=== PATIENT | female | born 1965 | race African-American/Black ===

== ENCOUNTER 2017-06-19 09:16 | Emergency (ER) | payer BC ==
[~2017-06-19] VITALS: Ht 165.1 cm; Wt 85.7 kg
[~2017-06-19 09:16] MED LIST: BP MEDS; CARDIZEM CD120 MG; DIOVAN; FISH OIL 1,001000 M2 PO; FLEXERIL PO; HYDROCODONE-AP1 EAC6 PO; LIDOCAINE VISC100 ML MM; NORCO 5-325 TA1 EACH PO; OMEPRAZOLE40 MG PO; PERCOCET 5-3251 EACH PO; TRAMADOL 50 MG50 MG PO; VALIUM2 MG PO; VALIUM5 MG PO; VITAMIN D1000 UNI1; ZPAK PO
[2017-06-19] MEDS ORDERED: VITAMIN E400 UNIT PO (09:30)
[2017-06-19] MEDS ORDERED: GARLIC1 EACH PO (09:30)
[2017-06-19] MEDS ORDERED: NORCO 5-325 TA1 EACH PO (09:58)
[2017-06-19 10:54] VITALS: BP 130/81
== END 2017-06-19 10:50 | disposition home or self-care (01) ==
LOC: ER 09:16
DX: M79.604 Pain in right leg (principal); M54.32 Sciatica, left side; I10 Essential (primary) hypertension; K21.9 Gastro-esophageal reflux disease without esophagitis; F17.210 Nicotine dependence, cigarettes, uncomplicated; Z88.0 Allergy status to penicillin; Z88.8 Allergy status to other drugs, medicaments and biological substances

== ENCOUNTER 2020-02-16 11:51 | Emergency (ER) | payer BC ==
[~2020-02-16] VITALS: Ht 160 cm; Wt 80.7 kg
[~2020-02-16 11:51] MED LIST changes: +GARLIC1 EACH PO; +VITAMIN E400 UNIT PO
[2020-02-16] MEDS ORDERED: DAILY MULTIPLE1 EACH PO (12:04)
[2020-02-16] MEDS ORDERED: NORCO 5-325 TA1 EAC2 PO (12:47)
[2020-02-16 13:16] VITALS: BP 136/80
== END 2020-02-16 13:17 | disposition home or self-care (01) ==
LOC: ER 11:51
DX: S92.355A Nondisplaced fracture of fifth metatarsal bone, left foot, initial encounter for closed fracture (principal); M25.562 Pain in left knee; I12.9 Hypertensive chronic kidney disease with stage 1 through stage 4 chronic kidney disease, or unspecified chronic kidney disease; N18.9 Chronic kidney disease, unspecified; K21.9 Gastro-esophageal reflux disease without esophagitis; F17.210 Nicotine dependence, cigarettes, uncomplicated; Z79.899 Other long term (current) drug therapy; Z88.8 Allergy status to other drugs, medicaments and biological substances; Z88.0 Allergy status to penicillin; X50.9XXA Other and unspecified overexertion or strenuous movements or postures, initial encounter; Y93.39 Activity, other involving climbing, rappelling and jumping off; Y92.098 Other place in other non-institutional residence as the place of occurrence of the external cause; Y99.8 Other external cause status

== ENCOUNTER 2020-06-19 12:32 | Inpatient (IN) | payer BC ==
[~2020-06-19] VITALS: Ht 165.1 cm; Wt 85.1 kg
--- NOTE | ~2020-06-19 | O ---
[place] [address] OPERATIVE REPORT Name: FRED RAMIREZ Romulo Room #: 454-P [facility] IN M.R.#: [id number] Admission: 06/19/20 Attend Phys: Pito Dan MD Discharge: Date of : 63 Report #: [id number] THIS REPORT FOR: cc: JOSÉ LUIS EARLY Physician not on staff Singh Zapata MD ~ DATE OF SERVICE: 06/21/2020 PREOPERATIVE DIAGNOSIS: Headache. POSTOPERATIVE DIAGNOSIS: Headache. OPERATION: Right superficial temporal artery biopsy. SURGEON: Singh Zapata MD ANESTHESIA: Local monitored. ESTIMATED BLOOD LOSS: Minimal. SPECIMEN: Right superficial temporal artery biopsy. DESCRIPTION OF PROCEDURE: After informed consent was obtained, the patient was brought to the operating room and placed supine. SCDs were placed and working, preoperative antibiotics were administered, local monitored anesthesia was induced. The area was then prepped and draped in the usual sterile fashion. A 1.5 cm incision was made over the surgical site, approximately 1 cm superior to the tragus. Cautery dissection was made down through the subcutaneous fat. I was able to dissect out the artery. It was clamped distally and proximally and approximately 0.5 cm section was excised and removed. Both ends were then tied off with a 4-0 Vicryl suture. The skin was then closed with 3-0 Vicryl for the deep layer and 4-0 Monocryl in running subcuticular fashion for the skin. Sterile dressings were applied. COMPLICATIONS: None. DISPOSITION: The patient was taken to recovery in satisfactory condition. By: [id number] Singh Zapata MD /nt
[~2020-06-19 12:32] MED LIST changes: +DAILY MULTIPLE1 EACH PO; +NORCO 5-325 TA1 EAC2 PO
[2020-06-19 12:45] VITALS: BP 130/76
[2020-06-19] MEDS ORDERED: DILTIAZEM ER240 MG PO (12:51)
[2020-06-19] MEDS ORDERED: LOSARTAN POTAS100 MG PO (12:52)
[2020-06-19 14:28] LABS: ABSOLUTE NEUTROPHILS 2.6 thou/uL (1.4-8.2); BASOPHILS 1.1 % (0.0-2.0); EOSINOPHILS 3.8 % (0.0-3.0); HEMATOCRIT 33.5 % (37.0-47.0); HEMOGLOBIN 10.9 gm/dL (12.0-15.0); LYMPHOCYTES 33.5 % (24.0-44.0); MCH 27.4 pg (26.0-34.0); MCHC 32.4 g/dL (28.0-37.0); MCV 84.7 fL (80.0-100.0); MONOCYTES 10.5 % (1.0-8.0); PLATELET COUNT 427 thou/uL (150-400); POLYS 51.1 % (36.0-66.0); RBC 3.96 mil/uL (4.20-5.00); RDW 14.5 % (10.5-14.5); WBC 5.1 thou/uL (4.0-11.0)
[2020-06-19 14:39] LABS: CALCIUM 9.7 mg/dL (8.5-10.1); CREATININE 3.2 mg/dL (0.6-1.0); POTASSIUM 4.1 mmol/L (3.5-5.1)
[2020-06-19 14:44] LABS: APTT 25.4 Seconds (24.5-32.8); INR 0.94; PROTIME 10.3 Seconds (9.3-11.4)
[2020-06-19 17:50] VITALS: BP 144/82
[2020-06-19 20:14] VITALS: BP 130/93
--- NOTE | 2020-06-20 02:43 | NUR ---
Pt admitted to room 454 at 1915. Pt stated she had been having dark brown, loose stools x 2 days, also severe headache x 2 days. [place] given x1 for pain with adequate relief obtained. Pt up to bathroom with stand by assist, gait steady.
[2020-06-20 04:53] LABS: HEMOGLOBIN 11.3 gm/dL (12.0-15.0); MCH 27.1 pg (26.0-34.0); MCHC 32.3 g/dL (28.0-37.0); MCV 83.9 fL (80.0-100.0); RBC 4.17 mil/uL (4.20-5.00); RDW 14.6 % (10.5-14.5); WBC 4.2 thou/uL (4.0-11.0)
[2020-06-20 05:15] LABS: CALCIUM 9.4 mg/dL (8.5-10.1); CREATININE 3.3 mg/dL (0.6-1.0)
[2020-06-20 05:28] LABS: POTASSIUM 5.2 mmol/L (3.5-5.1)
--- NOTE | 2020-06-20 06:44 | EKG ---
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 jules rn : 1965 Requested By: John Bae Order Number: [id number] MD: Jose A Ltitle Measurements Intervals [place] Rate: 44 P: 20 AR: 121 QRS: 5 QRSD: 96 T: 29 QT: 540 QTc: 462 Interpretive Statements Sinus bradycardia Low voltage, precordial leads Compared to ECG 09/06/2010 09:44:07 Low QRS voltage now present Short AR interval no longer present Electronically Signed On 06-20-2020 6:43:43 CDT by Jose A Little [email or web address] <ELECTRONICALLY SIGNED> By: Jose A Little MD, [facility] 06/20/20 0643 21 21 Jose A Little MD, FACC /EPI
[2020-06-20 09:01] VITALS: BP 149/98
[2020-06-20 14:03] VITALS: BP 133/71
--- NOTE | 2020-06-20 15:58 | NUR ---
PT ADMITTED RELATED TO MORALES, ELEVATED ESR, R/O GIAMT CELL ARTERITIS. CM REVEIWED CHART AND SPOKE WITH CARE TEAM. CM MET WITH PT AT BEDSIDE THIS DAY. PT APPEARED TO BE A&O X4. CM ROLE INTRODUCED. PT INDICATED SHE LIVES IN A TOWNHOUSE AND THAT HER MOTHER IS STAYING WITH HER CURRENTLY. SHE INDICATED THERE ARE 4 STEPS TO ENTER AND 10 STEPS INSIDE. 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 PT INDICATED NO DME OF HH HX. PT IS EMPLOYED AND WORKS. PT INDICATED HER PCP IS DR. JOSÉ LUIS YUEN AND [facility] RN [facility] MISAEL PEREZ. PT INDICATED SHE PLANS TO RETURN HOME ONCE MEDICALLY STABLE. PT TO HAVE TEMPORAL ARTERY BIOPSY TOMORROW. CM AVAIABLE SHOULD PT HAVE ANY NEEDS UPON DC.
[2020-06-20 17:03] VITALS: BP 148/89
[2020-06-20 19:45] VITALS: BP 114/62
[2020-06-21 06:12] LABS: CREATININE 3.5 mg/dL (0.6-1.0); PHOSPHORUS 4.5 mg/dL (2.5-4.9)
[2020-06-21 06:20] LABS: POTASSIUM 5.3 mmol/L (3.5-5.1)
[2020-06-21 08:00] VITALS: BP 145/87
--- NOTE | 2020-06-21 09:44 | HC ---
[facility] [place] [address] CONSULTATION Name: ASHLEYFRED Romulo Room #: 454-P [facility] IN ..#: [id number] Admission: 06/19/20 Attend Phys: Pito Dan MD Discharge: Date of : 63 Report #: [id number] THIS REPORT FOR: cc: JOSÉ LUIS EARLY Physician not on staff Lorri Garduno DO ~ NEUROLOGY CONSULTATION HISTORY OF PRESENT ILLNESS: The patient is a 54-year-old female who states that for 2 days prior to admission, she had not been feeling well and had not been feeling like herself. She mostly had a bifrontal headache from the middle of her forehead spreading around her eyes. She states that she never has headaches. In addition to the headache, she has noted blurry vision, but this blurry vision has been going on for some time. She does have reading glasses. She also is working from home and looking at the computer screen and has a special pair of glasses to block the light from the computer. She also has some pain in the outside of her thigh, but no muscle or joint pain. When she came to the Emergency Room yesterday, her sed rate was 50 and so she was admitted to the hospital for possible temporal arteritis. She received IV steroids and is now on prednisone 60 mg daily. She states that if she was 10 yesterday, today she is 2 and the reason she is not back to her baseline is because of the feeling in her head. She has noted also some constipation. She has been up to the bathroom and has not had any difficulty walking or trouble with her balance. As we finished the interview, the nurse practitioner for Rheumatology came in to interview her as well. PAST MEDICAL HISTORY: Hypertension, chronic renal insufficiency. PAST SURGICAL HISTORY: Tonsillectomy. MEDICATIONS: At home, diazepam 2 mg twice a day, pantoprazole 20 mg daily, diltiazem 240 mg daily, losartan 100 mg daily. ALLERGIES: PENICILLIN. PHYSICAL EXAMINATION: VITAL SIGNS: Temperature 36.4, pulse rate 53, respiratory rate 17, blood pressure 149/98, bedside pulse oximetry 100%. LABORATORY DATA: Hematology: White blood cell count 4.2, hemoglobin 11.3, hematocrit 35, MCV 83.7, platelet count 484,000. INR 0.94. Chemistry: Sodium 140, potassium 5.2, chloride 108, carbon dioxide 20, BUN 38, creatinine 3.3, GFR 18, glucose 152, calcium 9.4. IMAGING: CT scan of the head [place] [address] CONSULTATION Name: FRED RAMIREZ Room #: 454-P [facility] IN [facility].#: [id number] Admission: 06/19/20 Attend Phys: Pito Dan MD Discharge: Date of : 63 Report #: [id number] NEUROLOGIC: Cranial nerves 2-12 are grossly intact. Motor exam demonstrates symmetrical strength in all 4 extremities with tone and bulk normal. She is able to lift her arms parallel to the bed and lift each leg at 45-degree angle from the bed. Reflexes are symmetrical throughout. Plantar responses are flexor. Coordination reveals intact [id number]. IMPRESSION: The patient is currently being evaluated for temporal arteritis. I understand that her sed rate is elevated, but there are no other signs that would expect with temporal arteritis like blurry vision or muscle or joint pain. The patient is going to be seen by Rheumatology and between the services, we can decide whether or not the patient needs to proceed with a temporal artery biopsy. If she does not have temporal arteritis, I would take her off the steroids because it may be increasing her blood sugar, it was 152 this morning. Typically, the patient tells me that her blood pressure is usually better controlled and this in fact she has been on a diuretic and that was discontinued because it dropped her blood pressure too low. I thank you for your kind referral of the patient and we will continue to follow her with you. I would like the patient to get yet better headache control before she leaves, so in some sense perhaps the steroids are helpful, but I would only have her on the steroids in a taper for perhaps no longer than a week. I thank you for your kind referral of the patient and we will continue to follow her with you while she is in the hospital. <ELECTRONICALLY SIGNED> By: Lorri Garduno DO 06/21/20 0944 0930 [id number] Lorri Garduno DO /nt
--- NOTE | 2020-06-21 10:59 | NUR ---
Assumed pt care at 7am.Assessment completed.vss but karthik per color television console monitor. Received call from OR that pt will be picked up at 0830 for temporal biopsy. Pt left per bed to OR.Will continue to monitor.
[2020-06-21 16:42] VITALS: BP 119/70
[2020-06-21 19:45] VITALS: BP 115/62
[2020-06-22 08:18] VITALS: BP 155/86
[2020-06-22 10:12] LABS: ABSOLUTE NEUTROPHILS 12.7 thou/uL (1.4-8.2); BASOPHILS 0.6 % (0.0-2.0); HEMOGLOBIN 10.5 gm/dL (12.0-15.0); LYMPHOCYTES 12.5 % (24.0-44.0); MCH 26.7 pg (26.0-34.0); MCHC 31.7 g/dL (28.0-37.0); MCV 84.2 fL (80.0-100.0); MONOCYTES 3.6 % (1.0-8.0); PLATELET COUNT 392 thou/uL (150-400); POLYS 83.3 % (36.0-66.0); RBC 3.93 mil/uL (4.20-5.00); RDW 15.1 % (10.5-14.5); WBC 15.2 thou/uL (4.0-11.0)
[2020-06-22 10:30] LABS: CALCIUM 8.4 mg/dL (8.5-10.1); CREATININE 2.9 mg/dL (0.6-1.0); PHOSPHORUS 4.6 mg/dL (2.5-4.9); POTASSIUM 4.3 mmol/L (3.5-5.1); TOTAL BILIRUBIN 0.2 mg/dL (0.2-1.0); TOTAL PROTEIN 6.3 g/dL (6.4-8.2)
[2020-06-22] MEDS ORDERED: CARDIZEM CD120 MG PO (12:21)
[2020-06-22] MEDS ORDERED: SODIUM BICARBO650 M3 PO (12:22)
[2020-06-22 13:14] VITALS: BP 155/86
--- NOTE | 2020-06-22 13:40 | NUR ---
DISCHARGING TO HOME. DISCHARGE INSTRUCTIONS GIVEN. SALINE LOCK DISCONTINUED. TELE PACK SECURED.
== END 2020-06-22 15:00 | disposition home or self-care (01) | DRG 41 ==
LOC: ER 12:32 → 4W 18:42 → EROBS 18:42 → 4W 18:43
PROVIDERS: Emergency Medicine; Hospitalist; Internal Medicine; Surgery; ADMIT Hospitalist; ATTEND Hospitalist
PROC: 03BS0ZX Excision of Right Temporal Artery, Open Approach, Diagnostic (ICD-10-PCS; principal; 2020-06-21)
DX: R51.9 Headache, unspecified (principal); N18.4 Chronic kidney disease, stage 4 (severe); E87.5 Hyperkalemia; I12.9 Hypertensive chronic kidney disease with stage 1 through stage 4 chronic kidney disease, or unspecified chronic kidney disease; N28.9 Disorder of kidney and ureter, unspecified; K21.9 Gastro-esophageal reflux disease without esophagitis; D64.9 Anemia, unspecified; K59.00 Constipation, unspecified; Z20.822 Contact with and (suspected) exposure to COVID-19; Z79.899 Other long term (current) drug therapy; Z88.8 Allergy status to other drugs, medicaments and biological substances; Z88.0 Allergy status to penicillin; Z80.3 Family history of malignant neoplasm of breast
CPT/HCPCS: 10045; 50101; 50386; 50398; 56524; 56526; 56805; 62110; 62850; 70005

== ENCOUNTER 2020-07-14 22:57 | Emergency (ER) | payer BC ==
[~2020-07-14] VITALS: Ht 165.1 cm; Wt 77.1 kg
[~2020-07-14 22:57] MED LIST changes: +CARDIZEM CD120 MG PO; +DILTIAZEM ER240 MG PO; +LOSARTAN POTAS100 MG PO; +SODIUM BICARBO650 M3 PO
[2020-07-14 23:33] LABS: ABSOLUTE NEUTROPHILS 2.3 thou/uL (1.4-8.2); BASOPHILS 0.7 % (0.0-2.0); EOSINOPHILS 3.5 % (0.0-3.0); HEMATOCRIT 34.5 % (37.0-47.0); HEMOGLOBIN 11.3 gm/dL (12.0-15.0); LYMPHOCYTES 41.8 % (24.0-44.0); MCHC 32.9 g/dL (28.0-37.0); MCV 85.3 fL (80.0-100.0); PLATELET COUNT 257 thou/uL (150-400); RBC 4.05 mil/uL (4.20-5.00); RDW 16.5 % (10.5-14.5); WBC 5.2 thou/uL (4.0-11.0)
[2020-07-14 23:37] LABS: CALCIUM 9.3 mg/dL (8.5-10.1); CREATININE 5.5 mg/dL (0.6-1.0)
[2020-07-14 23:43] LABS: ALBUMIN 2.8 g/dL (3.4-5.0); TOTAL BILIRUBIN 0.3 mg/dL (0.2-1.0); TOTAL PROTEIN 7.4 g/dL (6.4-8.2)
[2020-07-14 23:56] LABS: POTASSIUM 5.8 mmol/L (3.5-5.1)
[2020-07-15 00:51] LABS: URINE BILIRUBIN NEGATIVE (Negative); URINE BLOOD 2+ (Negative); URINE CLARITY SL CLOUDY; URINE COLOR YELLOW; URINE GLUCOSE-RANDOM* NEGATIVE (Negative); URINE KETONES NEGATIVE (Negative); URINE LEUKOCYTES-REFLEX TRACE (Negative); URINE NITRITE-REFLEX NEGATIVE (Negative); URINE PROTEIN (DIPSTICK) 2+ (Negative); URINE SPECIFIC GRAVITY 1.025 (1.005-1.035); URINE UROBILINOGEN 0.2 E.U./dl (0.2-1.0)
[2020-07-15 01:13] LABS: BACTERIA-REFLEX 1-9 Few /HPF (None Seen); CASTS None Seen /LPF (None Seen); CRYSTALS None Seen /LPF (None Seen); MUCUS 4-6 Moderate strn/LPF (None Seen); SQUAMOUS >10 Many /LPF (0-3); URINE WBC-REFLEX 0-5 Rare /HPF (0-5)
[2020-07-15 04:25] VITALS: BP 119/78
== END 2020-07-15 04:28 | disposition short-term general hospital (02) ==
LOC: ER 22:57
PROVIDERS: Emergency Medicine
DX: N17.9 Acute kidney failure, unspecified (principal); N83.9 Noninflammatory disorder of ovary, fallopian tube and broad ligament, unspecified; I10 Essential (primary) hypertension; K21.9 Gastro-esophageal reflux disease without esophagitis; Z79.899 Other long term (current) drug therapy; Z87.891 Personal history of nicotine dependence; Z88.0 Allergy status to penicillin; Z88.8 Allergy status to other drugs, medicaments and biological substances; Z20.822 Contact with and (suspected) exposure to COVID-19